=== PATIENT | female | born 1975 | race Caucasian/White ===

== ENCOUNTER 2017-01-25 10:08 | Outpatient (CLI) | payer SELFPAY ==
[2017-01-25 11:48] LABS: ALT (SGPT) 21 U/L (8-55); AST (SGOT) 19 U/L (5-34); Alkaline Phosphatase 52 U/L (40-150); Anion Gap 12 mmol/L (10-20); BUN (Urea Nitrogen) 11 mg/dL (7.0-18.7); Bilirubin, Direct 0.3 mg/dL (0.1-0.3); Bilirubin, Total 0.7 mg/dL (0.2-1.2); Calc. Creatinine Clearance 0 mL/min (70-130); Carbon Dioxide 28 mmol/L (22-29); Chloride 104 mmol/L (98-107); Estimated GFR-MDRD 80; Globulin 2.7 g/dL (2.4-3.5)
== END 2017-01-25 10:09 | disposition home or self-care (01) ==
LOC: LABBT 10:08
PROVIDERS: ATTEND Surgery
DX: Z01.818 Encounter for other preprocedural examination (principal); E66.01 Morbid (severe) obesity due to excess calories
CPT/HCPCS: 80053; 82248

== ENCOUNTER 2017-01-25 10:30 | Inpatient (IN) | payer OTHER ==
[2017-01-25 10:30] VITALS: BMI 36.6
[2017-02-01] MEDS ORDERED: CEFAZOLIN/Water 2 GM/20 ML SYRINGE ONE (10:12)
[2017-02-01] MEDS ORDERED: Heparin 5,000 UNITS/ML VIAL ONE (10:14)
[2017-02-01] MEDS ORDERED: Midazolam HCl 2 mg/2 ml Vial ONE ×2 (10:15→10:24)
[2017-02-01] MEDS ORDERED: Fentanyl 250 MCG/5 ML VIAL ONE (10:24)
[2017-02-01] MEDS ORDERED: Bupivacaine/Epinephrine 0.25% 30 ML VIAL ONE (10:30)
[2017-02-01] MEDS ORDERED: Promethazine HCl 25 MG/ML VIAL IM PRN ×3 (11:43→12:07)
[2017-02-01] MEDS ORDERED: Ondansetron HCl/PF 4 MG/2 ML Vial IVP PRN ×3 (11:43→12:07)
[2017-02-01] MEDS ORDERED: Dextrose 50% Abboject 50 ML SYRINGE SLOW IVP PRN (11:43)
[2017-02-01] MEDS ORDERED: hydrALAZINE 20 MG/ML VIAL SLOW IVP PRN (11:43)
[2017-02-01] MEDS ORDERED: Hydrocodone-Acetamin 15 ML UDCUP PO PRN (11:43)
[2017-02-01] MEDS ORDERED: diphenhydrAMINE 50 MG/ML VIAL IVP PRN ×2 (11:43→11:56)
[2017-02-01] MEDS ORDERED: Dextrose 5% in Water 1,000 ML IV PRN (11:43)
--- NOTE | 2017-02-01 11:53 | OP ---
PREOPERATIVE DIAGNOSIS: Morbid obesity. SURGEON: Ray Sandoval M.D. PROCEDURES PERFORMED: Laparoscopic sleeve gastrectomy, esophagogastroscopy. INDICATIONS: A 41-year-old female, morbidly obese, who has attempted multiple weight loss programs w [facility]. FINDINGS: A 38 [place] bougie used. PROCEDURE IN DETAIL: After informed consent was obtained, the patient was taken to the operating [facility] and given general endotracheal anesthesia. She was placed in the supine position. Abdomen was pre pped and draped in the usual fashion. Local anesthesia infiltrated subcutaneously and deep. A 12 mm incision was performed approximately 8 inches below the xiphoid slightly to the left. Veress needle inserted. Drop test performed. Pneumoperitoneum was created to a volume of 2 liters of carbon diox diaz. Utilizing a bladeless 12 mm trocar and 0 degree laparoscope, direct visual entry in the abdomin al cavity was performed. Pneumoperitoneum was created to a pressure of 15 [address] patient [address] d in the steep reverse Trendelenburg position. Nathansen liver retractor inserted. Left lobe of jignesh er retracted superiorly. The pylorus identified. A 12 mm port placed on the right beneath it and tw o 12s placed left subcostal. The omentum was taken off the greater curvature 5 cm from the pylorus u tilizing a LigaSure. Short gastrics divided with LigaSure, left crura defined with the LigaSure. Th e 38-[place] bougie inserted directed into the antrum. The linear 60 mm green load stapler used to di vide the antrum to the bougie, gold load along the bougie, and a series of blues through the angle of His. Intraoperative endoscopy was then performed. The video endoscope inserted under direct vision and advanced into the sleeve. Staple line inspected. There was no bleeding. Staple line then test ed by inflating the new stomach with pressurized air under water. There was no air leak. Stomach de compressed. Scope removed. The remnant stomach removed from the abdomen through the left lateral po rt site. The fascia closed with 0 Vicryl suture and the GraNee needle. Trocars and retractors remov ed. The skin closed with interrupted 4-0 Rapide. Dermabond applied. The patient tolerated the proc edure well and transferred to recovery in good condition. Sponge and needle count verified correct x 2.
[2017-02-01] MEDS ORDERED: Fentanyl 5000 MCG/250 ML CADD IVPB PRN (11:56)
[2017-02-01] MEDS ORDERED: Zolpidem Tartrate 5 MG TAB PO PRN (11:56)
[2017-02-01] MEDS ORDERED: diphenhydrAMINE 50 MG/ML VIAL IM PRN (11:56)
[2017-02-01] MEDS ORDERED: Ketorolac Tromethamine 30 MG/ML VIAL IVP PRN (11:56)
[2017-02-01] MEDS ORDERED: Naloxone HCl 0.4 mg/ml Vial IV PRN (11:56)
[2017-02-01] MEDS ORDERED: diphenhydrAMINE 25 MG CAP PO PRN (11:56)
[2017-02-01] MEDS ORDERED: Communication Order-Pharmacy FS SCH (12:00)
[2017-02-01] MEDS ORDERED: Promethazine HCl 25 MG/ML VIAL SLOW IVP PRN (12:07)
[2017-02-01] MEDS ORDERED: Fentanyl 100 MCG/2 ML VIAL ONE ×3 (12:13→12:44)
[2017-02-01] MEDS ORDERED: Fentanyl 20 MCG/ML 250 ML ONE (12:18)
[2017-02-01] MEDS: Ketorolac Tromethamine 30 MG/ML VIAL IVP SCH ×2 (13:53→18:36)
[2017-02-01] MEDS ORDERED: Ondansetron HCl/PF 4 MG/2 ML Vial ONE (14:08)
[2017-02-01] MEDS ORDERED: Glycopyrrolate 0.2 MG/ML 5 ML SYRINGE ONE (14:08)
[2017-02-01] MEDS ORDERED: Dexamethasone 20 MG/5 ML VIAL ONE (14:08)
[2017-02-01] MEDS ORDERED: Propofol 200 MG/20 ML VIAL ONE (14:08)
[2017-02-01] MEDS ORDERED: Lidocaine 1% PF 5 ML VIAL ONE (14:08)
[2017-02-01] MEDS: D5 1/2 NS w/20 mEq KCL 1,000 ML IV SCH ×2 (14:12→22:15)
[2017-02-01] MEDS: CEFAZOLIN/Water 2 GM/20 ML SYRINGE SLOW IVP SCH (18:37)
[2017-02-02] MEDS: Ketorolac Tromethamine 30 MG/ML VIAL IVP SCH ×3 (00:07→11:45)
[2017-02-02] MEDS: CEFAZOLIN/Water 2 GM/20 ML SYRINGE SLOW IVP SCH (03:51)
[2017-02-02] MEDS: D5 1/2 NS w/20 mEq KCL 1,000 ML IV SCH ×2 (05:07→11:41)
[2017-02-02 05:44] LABS: #Lymphocytes 1.2 thou/uL (1.20-3.40); #Monocytes 0.6 thou/uL (0.11-0.59); #Neutrophils 8.1 thou/uL (1.40-6.50); %Basophils 0.2 % (0.0-1.0); %Eosinophils 0.1 % (0.0-10.0); %Lymphocytes 12.2 % (21.0-51.0); %Monocytes 5.7 % (0.0-10.0); Hematocrit 37.9 % (36.0-47.0); Mean Platelet Volume 8.9 fL (7.4-10.4); Red Blood Cell (RBC) Count 4.04 mill/uL (4.20-5.40); White Blood Cell (WBC) Count 9.8 thou/uL (4.8-10.8)
[2017-02-02 06:05] LABS: Anion Gap 9 mmol/L (10-20); BUN (Urea Nitrogen) 5 mg/dL (7.0-18.7); Calc. Creatinine Clearance 142 mL/min (70-130); Calcium 8.1 mg/dL (7.8-10.44); Carbon Dioxide 23 mmol/L (22-29); Chloride 109 mmol/L (98-107); Estimated GFR-MDRD 86
[2017-02-02] MEDS ORDERED: Enoxaparin Sodium 40 MG/0.4 ML SYRINGE SC SCH (09:00)
[2017-02-02] MEDS ORDERED: Pantoprazole 40 MG VIAL IVP SCH (09:00)
--- NOTE | 2017-02-02 09:07 | RAD ---
15 ML SWALLOW: History: Status post bariatric surgery. Post op day 1. Comparison: None. Exposure: 0.9 minutes, 96.85 mGy*cm^2. FINDINGS: Patient was administered 15 cc of Gastrografin. No evidence of delay in passage. No evidence of leak or extravasation. IMPRESSION: No evidence of leak or extravasation. POS: RAMU
[2017-02-02] MEDS ORDERED: Hydrocodone-Acetamin 15 ML UDCUP PO PRN (10:47)
[2017-02-02 12:05] VITALS: BP 117/76; TEMP 97.6
--- NOTE | 2017-02-02 12:11 | DIS ---
DISCHARGE DIAGNOSIS: Morbid obesity. PROCEDURES DURING ADMISSION: Laparoscopic sleeve gastrectomy, intraoperative esophagogastroscopy, po stoperative Gastrografin swallow. HOSPITAL COURSE: The patient was admitted, taken to the operating room where she underwent a sleeve gastrectomy. Postoperatively, she has done well. X-ray is fine. She is tolerating liquids well. S he is discharged home in good condition on hydrocodone and Zofran. She will follow up with me in 2 w eeks.
== END 2017-02-02 13:15 | disposition home or self-care (01) | DRG 621 ==
LOC: SURG A 02-01 09:10 → SURG B 02-01 12:49
PROVIDERS: ADMIT Surgery; ATTEND Surgery
PROC: 0DB64Z3 Excision of Stomach, Percutaneous Endoscopic Approach, Vertical (ICD-10-PCS; principal; 2017-02-01)
DX: E66.01 Morbid (severe) obesity due to excess calories (principal); E78.5 Hyperlipidemia, unspecified; Z68.36 Body mass index [BMI] 36.0-36.9, adult; Z83.3 Family history of diabetes mellitus; Z82.3 Family history of stroke; Z82.49 Family history of ischemic heart disease and other diseases of the circulatory system; Z80.9 Family history of malignant neoplasm, unspecified
CPT/HCPCS: 36415; 74241; 80048; 83036; 85025; 88307; 88312; 94760; C9113; J1100; J1644; J1650; J1885; J2001; J2250; J2405; J2704; J3010